=== PATIENT | male | born 1990 | race African-American/Black ===

== ENCOUNTER 2019-05-01 07:42 | Emergency (ER) | payer MEDICAID, OTHER ==
[~2019-05-01] VITALS: Ht 170.2 cm; Wt 64.0 kg
[2019-05-01 09:00] VITALS: BP 115/59
== END 2019-05-01 09:00 | disposition home or self-care (01) ==
LOC: ER 08:32
DX: T65.891A Toxic effect of other specified substances, accidental (unintentional), initial encounter (principal); H57.13 Ocular pain, bilateral; F12.10 Cannabis abuse, uncomplicated; Y92.89 Other specified places as the place of occurrence of the external cause
CPT/HCPCS: 99283; J7050